=== PATIENT | female | born 1995 | race Caucasian/White ===

== ENCOUNTER 2017-05-20 22:42 | Emergency (ER) | payer SELFPAY ==
[2017-05-20] MEDS ORDERED: Ondansetron 4 MG/2 ML SDV IVPUSH ONE (22:55)
[2017-05-20] MEDS ORDERED: Sodium Chloride 0.9% 1,000 ML IV ONE (22:55)
--- NOTE | 2017-05-20 22:57 | EDM.PDOC ---
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 Complaint: 12 WKS PREG, SPOTTING, DISCHARGE Time Seen by Provider: 05/20/17 22:57 Source of Information: Reports: Patient - History of Present Illness INITIAL COMMENTS - FREE TEXT/NARRATIVE: HISTORY AND PHYSICAL: History of present illness: [Patient 10 presents at 12 weeks 5 days with IUP She states she has some spotting that has occurred as well as some white discharge vaginally and some mild 1 out of 10 crampy pelvic pain no fever nausea vomiting chills sweats no low back pain no sensation or urge to push ] Patient uncertain of LMP she states she did have a period in January her on the , 1 day of bleeding in February uncertain of the day, she is followed with a " clinic "in [place], [place] and ultrasound was performed in March she states at that time she was given a possible date of 4-5 weeks but it was too early to be certain Review of systems: As per history of present illness and below otherwise all systems reviewed and negative. Past medical history: As per history of present illness and as reviewed below otherwise noncontributory. Surgical history: As per history of present illness and as reviewed below otherwise noncontributory. Social history: No reported history of drug or alcohol abuse. Family history: As per history of present illness and as reviewed below otherwise noncontributory. Physical exam: HEENT: Atraumatic, normocephalic, pupils reactive, negative for conjunctival pallor or scleral icterus, mucous membranes moist, throat clear, neck supple, nontender, trachea midline. Lungs: Clear to auscultation, breath sounds equal bilaterally, chest nontender. Heart: S1S2, regular, negative for clicks, rubs, or JVD. Abdomen: Soft, nondistended, nontender. Negative for masses or hepatosplenomegaly. Negative for costovertebral tenderness. Pelvis: Stable nontender. Genitourinary: External vaginal exam no mass scar or lesion internal exam mucosa pink and moist no blood in the vaginal vault white mucus discharge no curdy material no mass scar or lesion no cervical motion tenderness cervix is closed Rectal: Deferred. Extremities: Atraumatic, negative for cords or calf pain. Neurovascular unremarkable. Neuro: Awake, alert, oriented. Cranial nerves II through XII unremarkable. Cerebellum unremarkable. Motor and sensory unremarkable throughout. Exam nonfocal. Diagnostics: []CBC CMP UA hCG Quant vaginal cultures, GC Chlamydia Wet mount ABO type OB limited ultrasound Therapeutics: [1 L normal saline bolus Zofran 4 mg IV ] Impression: [Threatened ] 11 at 12 weeks 5 days with IUP heart rate 147 EDC 11/27 by ultrasound ABO type A+ Definitive disposition and diagnosis as appropriate pending reevaluation and review of above. abdomen Pain Score (Numeric/FACES): 6 - Related Data Allergies Allergy/AdvReac Type Severity Reaction Status Date / Time No Known Allergies Allergy Verified 05/20/17 22:45 Home Meds: Home Meds . [No Known Home Meds] 05/20/17 [History] ED ROS GENERAL - Review of Systems Review Of Systems: ROS reveals no pertinent complaints other than HPI. ED EXAM, GENERAL - Physical Exam Exam: See Below Course - Vital Signs Last Recorded V/S: Last Vital Signs Temp 98.5 F 05/21/17 01:41 Pulse 64 05/21/17 01:41 Resp 14 05/21/17 01:41 BP 101/50 L 05/21/17 01:41 Pulse Ox 100 05/21/17 01:41 - Orders/Labs/Meds Orders: Active Orders 24 hr Category Date Time Status OB Ltd 1 or More Fetus [US] Stat Exams 05/20/17 22:56 Taken CHLAMYDIA AND GONORRHEA BY TMA Stat Lab 05/21/17 01:00 Received CULTURE GENITAL [RM] Stat Lab 05/21/17 01:00 Received CULTURE URINE [RM] Stat Lab 05/21/17 01:01 Received Labs: Laboratory Tests 05/20/17 05/20/17 05/20/17 Range/Units 22:55 23:08 23:08 WBC 8.29 (4.0-11.0) K/uL RBC 3.99 L (4.30-5.90) M/uL Hgb 11.6 L (12.0-16.0) g/dL Hct 33.5 L (36.0-46.0) % MCV 84.0 (80.0-98.0) fL MCH 29.1 (27.0-32.0) pg MCHC 34.6 (31.0-37.0) g/dL RDW Std Deviation 42.9 (28.0-62.0) fl RDW Coeff of Ziggy 14 (11.0-15.0) % Plt Count 299 (150-400) K/uL MPV 10.10 (7.40-12.00) fL Neut % (Auto) 56.6 (48.0-80.0) % Lymph % (Auto) 35.7 (16.0-40.0) % Bucks % (Auto) 5.8 (0.0-15.0) % Eos % (Auto) 1.7 (0.0-7.0) % Baso % (Auto) 0.2 (0.0-1.5) % Neut # (Auto) 4.7 (1.4-5.7) K/uL Lymph # (Auto) 3.0 H (0.6-2.4) K/uL Bucks # (Auto) 0.5 (0.0-0.8) K/uL Eos # (Auto) 0.1 (0.0-0.7) K/uL Baso # (Auto) 0.0 (0.0-0.1) K/uL Nucleated RBC % 0.0 /100WBC Nucleated RBCs # 0 K/uL Sodium 139 (136-145) mmol/L Potassium 3.7 (3.5-5.1) mmol/L Chloride 104 (98-107) mmol/L Carbon Dioxide 26.5 (21.0-32.0) mmol/L BUN 6 L (7.0-18.0) mg/dL Creatinine 0.6 (0.6-1.0) mg/dL Est Cr Clr Drug Dosing 115.33 mL/min Estimated GFR (MDRD) > 60.0 ml/min Glucose 75 (74-106) mg/dL Calcium 9.0 (8.5-10.1) mg/dL Total Bilirubin 0.2 (0.2-1.0) mg/dL AST 13 L (15-37) U/L ALT 17 (14-63) U/L Alkaline Phosphatase 56 (46-116) U/L Troponin I < 0.050 (0.000-0.056) ng/mL Total Protein 7.0 (6.4-8.2) g/dL Albumin 3.1 L (3.4-5.0) g/dL Globulin 3.9 H (2.0-3.5) g/dL Albumin/Globulin Ratio 0.8 L (1.3-2.8) HCG, Quant 73283.0 mIU/mL Urine Color YELLOW Urine Appearance SLT CLOUDY Urine pH 5.5 (5.0-8.0) Ur Specific Kathleen 1.020 (1.001-1.035) Urine Protein NEGATIVE (NEGATIVE) mg/dL Urine Glucose (UA) NEGATIVE (NEGATIVE) mg/dL Urine Ketones NEGATIVE (NEGATIVE) mg/dL Urine Occult Blood NEGATIVE (NEGATIVE) Urine Nitrite NEGATIVE (NEGATIVE) Urine Bilirubin NEGATIVE (NEGATIVE) Urine Urobilinogen 1.0 (<2.0) EU/dL Ur Leukocyte Esterase SMALL (NEGATIVE) Urine RBC 0-2 (0-2/HPF) Urine WBC 2-5 (0-5/HPF) Ur Epithelial Cells FEW (NONE-FEW) Amorphous Sediment LIGHT (NEGATIVE) Urine Bacteria FEW (NEGATIVE) Zuleika species DNA (NEGATIVE) Gardnerella DNA Probe (NEGATIVE) Trichomonas DNA Probe (NEGATIVE) Blood Type 05/20/17 05/21/17 Range/Units 23:08 01:00 WBC (4.0-11.0) K/uL RBC (4.30-5.90) M/uL Hgb (12.0-16.0) g/dL Hct (36.0-46.0) % MCV (80.0-98.0) fL MCH (27.0-32.0) pg MCHC (31.0-37.0) g/dL RDW Std Deviation (28.0-62.0) fl RDW Coeff of Ziggy (11.0-15.0) % Plt Count (150-400) K/uL MPV (7.40-12.00) fL Neut % (Auto) (48.0-80.0) % Lymph % (Auto) (16.0-40.0) % Bucks % (Auto) (0.0-15.0) % Eos % (Auto) (0.0-7.0) % Baso % (Auto) (0.0-1.5) % Neut # (Auto) (1.4-5.7) K/uL Lymph # (Auto) (0.6-2.4) K/uL Bucks # (Auto) (0.0-0.8) K/uL Eos # (Auto) (0.0-0.7) K/uL Baso # (Auto) (0.0-0.1) K/uL Nucleated RBC % /100WBC Nucleated RBCs # K/uL Sodium (136-145) mmol/L Potassium (3.5-5.1) mmol/L Chloride (98-107) mmol/L Carbon Dioxide (21.0-32.0) mmol/L BUN (7.0-18.0) mg/dL Creatinine (0.6-1.0) mg/dL Est Cr Clr Drug Dosing mL/min Estimated GFR (MDRD) ml/min Glucose (74-106) mg/dL Calcium (8.5-10.1) mg/dL Total Bilirubin (0.2-1.0) mg/dL AST (15-37) U/L ALT (14-63) U/L Alkaline Phosphatase (46-116) U/L Troponin I (0.000-0.056) ng/mL Total Protein (6.4-8.2) g/dL Albumin (3.4-5.0) g/dL Globulin (2.0-3.5) g/dL Albumin/Globulin Ratio (1.3-2.8) HCG, Quant mIU/mL Urine Color Urine Appearance Urine pH (5.0-8.0) Ur Specific Kathleen (1.001-1.035) Urine Protein (NEGATIVE) mg/dL Urine Glucose (UA) (NEGATIVE) mg/dL Urine Ketones (NEGATIVE) mg/dL Urine Occult Blood (NEGATIVE) Urine Nitrite (NEGATIVE) Urine Bilirubin (NEGATIVE) Urine Urobilinogen (<2.0) EU/dL Ur Leukocyte Esterase (NEGATIVE) Urine RBC (0-2/HPF) Urine WBC (0-5/HPF) Ur Epithelial Cells (NONE-FEW) Amorphous Sediment (NEGATIVE) Urine Bacteria (NEGATIVE) Zuleika species DNA NEGATIVE (NEGATIVE) Gardnerella DNA Probe NEGATIVE (NEGATIVE) Trichomonas DNA Probe NEGATIVE (NEGATIVE) Blood Type A POSITIVE Meds: Medications Discontinued Medications Generic Name Dose Route Start Last Admin Trade Name Freq PRN Reason Stop Dose Admin Sodium Chloride 1,000 mls @ 999 mls/hr 05/20/17 22:55 05/20/17 23:10 Normal Saline IV 05/20/17 23:55 999 mls/hr STAT ONE Administration Ondansetron HCl 4 mg 05/20/17 22:55 05/20/17 23:10 Zofran IVPUSH 05/20/17 22:56 4 mg ONETIME ONE Administration Departure - Departure Time of Disposition: :01 Disposition: Home, Self-Care 01 Condition: Good Clinical Impression: Threatened - Discharge Information Referrals: PCP,None [Primary Care Provider] - Forms: ED Department Discharge Additional Instructions: Follow-up with OB and establish care, phone numbers provided below for both local clinics Again nothing per vagina and no tampons douching intercourse etc. vitamins recommended Return if symptoms persist or worsen or new concerning symptoms develop [facility] [address] [place] [id number] [facility] [address] [place] [id number] The following information is given to patients seen in the emergency department who are being discharged to home. This information is to outline your options for follow-up care. We provide all patients seen in our emergency department with a follow-up referral. The need for follow-up, as well as the timing and circumstances, are variable depending upon the specifics of your emergency department visit. If you don't have a primary care physician on staff, we will provide you with a referral. We always advise you to contact your personal physician following an emergency department visit to inform them of the circumstance of the visit and for follow-up with them and/or the need for any referrals to a consulting specialist. The emergency department will also refer you to a specialist when appropriate. This referral assures that you have the opportunity for follow-up care with a specialist. All of these measure are taken in an effort to provide you with optimal care, which includes your follow-up. Under all circumstances we always encourage you to contact your private physician who remains a resource for coordinating your care. When calling for follow-up care, please make the office aware that this follow-up is from your recent emergency room visit. If for any reason you are refused follow-up, please contact the emergency department at and asked to speak to the emergency department charge nurse. - My Orders Last 24 Hours: My Active Orders 05/20/17 22:56 OB Ltd 1 or More Fetus [US] Stat 05/21/17 01:00 CHLAMYDIA AND GONORRHEA BY TMA Stat CULTURE GENITAL [RM] Stat 05/21/17 01:01 CULTURE URINE [RM] Stat - Assessment/Plan Last 24 Hours: My Active Orders 05/20/17 22:56 OB Ltd 1 or More Fetus [US] Stat 05/21/17 01:00 CHLAMYDIA AND GONORRHEA BY TMA Stat CULTURE GENITAL [RM] Stat 05/21/17 01:01 CULTURE URINE [RM] Stat
[2017-05-21 00:01] LABS: CHLORIDE,CL 104 mmol/L (98-107); SODIUM,NA 139 mmol/L (136-145)
--- NOTE | 2017-05-21 10:08 | US ---
EXAM DATE: 05/20/17 PATIENT'S AGE: 22 Patient: ELVA CRUZ Facility: [place], [place] Site . Site : 1995 Study: US OB Pelvis [id number]/6/2018 12:16:23 AM Ordering Physician: Ang Adames Final Report: INDICATION: Spotting TECHNIQUE: Ultrasound OB pelvis transvaginal. Real time dowell scale imaging of the pelvis was performed. COMPARISON: None FINDINGS: LMP: 02/28/2017 Gestational age by LMP: 11 weeks 4 days Estimated due date by LMP: 12/05/2017 Sonographic imaging demonstrates a single living intrauterine gestation. The embryo demonstrates a regular cardiac rate measuring 147 beats per minute. The embryo`s crown rump length measurement of 6.13 cm corresponds to a gestational age of 12 weeks 5 days with a sonographic due date of 11/27/2017. There is a normal appearing yolk sac. There are no gross abnormalities noted within the embryo at this early state of development. The placenta has not yet developed. The gestational sac has a normal appearance and there is no evidence of a perigestational hemorrhage. The amount of fluid within the sac appears appropriate for gestational age. The cervix is closed. The myometrium appears normal. The ovaries are of normal size. There are no suspicious fluid collections noted in the cul-de-sac. IMPRESSION: Viable intrauterine . Gestational age calculated at 12 weeks 5 days with a sonographic due date of 11/27/2017. No abnormalities seen. Dictated by Gurvinder Quevedo MD @ 05/21/2017 12:24:21 AM Dictated by: Gurvinder Quevedo MD @ 05/21/2017 00:24:29 (Electronic Signature) Report Signed by Proxy. KAMLA
== END 2017-05-21 02:12 | disposition home or self-care (01) ==
LOC: MW.ED 22:42
DX: O20.0 Threatened abortion (principal); Z3A.12 12 weeks gestation of pregnancy
CPT/HCPCS: 36415; 76815; 80053; 81001; 84484; 84702; 85025; 86900; 86901; 87070; 87086; 87480; 87491; 87510; 87591; 87660; 96361; 96374; 99284; J2405; J7040; 99283

== ENCOUNTER 2018-10-12 01:06 | Observation (INO) | payer MEDICAID ==
[2018-10-12] MEDS ORDERED: Misoprostol 200 MCG Tab PO PRN (02:36)
[2018-10-12] MEDS ORDERED: Lidocaine 1% 50 ML MDV INJECT PRN (02:36)
[2018-10-12] MEDS ORDERED: Methylergonovine 0.2 MG/1 ML Amp IM PRN (02:36)
[2018-10-12] MEDS ORDERED: Carboprost Tromethamine 250 MCG/1 ML Amp IM PRN (02:36)
[2018-10-12] MEDS ORDERED: Sodium Chloride 0.9% 10 ML SDV IV PRN (02:36)
[2018-10-12] MEDS ORDERED: Tranexamic Acid 1,000 MG in Sodium Chloride 0.9% 100 ML IV PRN (02:36)
[2018-10-12] MEDS ORDERED: Water For Irrigation,Sterile 1,000 ML Container IRR PRN (02:36)
[2018-10-12] MEDS ORDERED: Nalbuphine 10 MG/1 ML Vial IVPUSH PRN (02:36)
[2018-10-12] MEDS ORDERED: Sodium Chloride 0.9% 10 ML Syringe FLUSH PRN (02:36)
[2018-10-12] MEDS ORDERED: Sodium Chloride 0.9% 2.5 ML Syringe FLUSH PRN (02:36)
[2018-10-12] MEDS ORDERED: Butorphanol 1 MG/ML SDV IVPUSH PRN (02:36)
[2018-10-12] MEDS ORDERED: Oxytocin/0.9 % Sodium Chloride 30 UNIT/500 ML BAG IV SCH (02:45)
[2018-10-12] MEDS: Lactated Ringers 1,000 ML IV SCH ×2 (03:13→05:10)
[2018-10-12] MEDS ORDERED: Betamethasone Acetate/Betamethasone Sod Phosphate 30 MG/5 ML MDV IM ONE (07:50)
[2018-10-12] MEDS ORDERED: Promethazine 25 MG/ML SDV IM ONE (07:52)
[2018-10-13] MEDS ORDERED: Betamethasone Acetate/Betamethasone Sod Phosphate 30 MG/5 ML MDV IM ONE (07:50)
== END 2018-10-13 08:40 | disposition home or self-care (01) ==
LOC: MW.OBCHECK 01:06 → MW.OB 01:07 → MW.OBCHECK 02:36
PROVIDERS: ADMIT Obstetrics & Gynecology; ATTEND Obstetrics & Gynecology
DX: O60.03 Preterm labor without delivery, third trimester (principal); O99.013 Anemia complicating pregnancy, third trimester; D64.9 Anemia, unspecified; O99.343 Other mental disorders complicating pregnancy, third trimester; F41.8 Other specified anxiety disorders; O36.8130 Decreased fetal movements, third trimester, not applicable or unspecified; Z3A.35 35 weeks gestation of pregnancy; Z88.8 Allergy status to other drugs, medicaments and biological substances; Z86.59 Personal history of other mental and behavioral disorders
CPT/HCPCS: 36415; 59025; 84112; 85027; 86850; 86900; 86901; 96360; 96361; 96372; G0378; J0702; J2550; J7120

== ENCOUNTER 2018-10-15 20:41 | Inpatient (IN) | payer MEDICAID ==
[2018-10-15] MEDS ORDERED: Oxytocin 10 Units/1 ML SDV ONE (21:15)
[2018-10-15] MEDS ORDERED: Oxytocin/0.9 % Sodium Chloride 30 UNIT/500 ML BAG ONE (21:23)
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
--- NOTE | 2018-10-15 21:56 | PCM.DEL ---
L & D Note - General Info Date of Service: 10/15/18 Mother's Due Date: 11/12/18 - Delivery Note Labor: Spontaneous Delivery Outcome: Livebirth Infant Delivery Method: Spontaneous Vaginal Delivery-Single Delivery Mode: Spontaneous Presentation: Vertex Nuchal Cord: None Anesthesia Type: None Amniotic Fluid Description: Meconium Stained Episiotomy Type: None Laceration: None Placenta: Intact, Spontaneous, Clot (5cm abruption noted) Cord: 3 Vessels Estimated Blood Loss: 300 Resuscitation Needed: Yes Score 1 min: 4 Score 5 min: 7 Second Stage Interventions: Reports: Pushing, Pulls Own Legs Back Delivery Comments (Free Text/Narrative):: of viable female. Head delivered with good pushing, shoulders and body followed. Fluid dark red blood noted. to mothers abd with RN at bs for evaluation. Cord clamped and cut. to warmer without spont cry. Ped doc at bs for deliver and resuscitation. Cord blood collected. Placenta delivered grossly intact, inspection of the placenta noted 5cm abruption. Inspection noted intact perineum. EBL 300cc, APGARS 4/7, Wt: 6lb. Mother and baby in stable condition. - General Info Date of Service: 10/15/18 Admission Dx/Problem (Free Text): Patient Status Order with Admit Dx/Problem 10/15/18 20:47 Patient Status [ADT] Routine Admission Diagnosis/Problem Admission Diagnosis/Problem 10/15/18 21:31 23yo EDC 11/12/2018 36 0/7wks, comes in active labor at 6cm, A+, Non- Immune, GBS neg. Functional Status: Reports: Pain Controlled - Review of Systems General: Reports: No Symptoms HEENT: Reports: No Symptoms Pulmonary: Reports: No Symptoms Cardiovascular: Reports: No Symptoms Gastrointestinal: Reports: No Symptoms Genitourinary: Reports: No Symptoms Musculoskeletal: Reports: No Symptoms Skin: Reports: No Symptoms Neurological: Reports: No Symptoms Psychiatric: Reports: No Symptoms - Patient Data Med Orders - Current: Current Medications Discontinued Medications Oxytocin/Sodium Chloride (Oxytocin 30 Unit/500 Ml-Ns) Confirm Administered Dose 30 unit in 500 mls @ as directed .ROUTE .STK-MED ONE Stop: 10/15/18 21:24 Oxytocin (Pitocin) Confirm Administered Dose 10 unit .ROUTE .STK-MED ONE Stop: 10/15/18 21:16 - Exam General: Alert, Oriented, Cooperative Lungs: Normal Respiratory Effort GI/Abdominal Exam: Soft, Non-Tender (Female) Exam: Normal External Exam, Normal Bimanual Exam, Vaginal Bleeding Back Exam: Full Range of Motion Extremities: Normal Inspection, Normal Range of Motion, Non-Tender, No Pedal Edema Skin: Warm, Dry, Intact Neurological: No New Focal Deficit, Normal Speech, Normal Tone, Strength Equal Bilateral Psy/Mental Status: Alert, Normal Affect, Normal Mood - Problem List & Annotations (1) Supervision of normal IUP (intrauterine ) in multigravida SNOMED Code(s): 164492878, 877648281, 601333181 Code(s): Z34.80 - ENCOUNTER FOR SUPRVSN OF NORMAL , UNSP TRIMESTER Status: Acute Priority: High Current Visit: Yes Qualifiers: Trimester: third trimester Qualified Code(s): Z34.83 - Encounter for supervision of other normal , third trimester (2) (normal spontaneous vaginal delivery) SNOMED Code(s): 10731929, 749401076 Code(s): O80 - ENCOUNTER FOR FULL-TERM UNCOMPLICATED DELIVERY Status: Acute Priority: High Current Visit: Yes - Problem List Review Problem List Initiated/Reviewed/Updated: Yes - My Orders Last 24 Hours: My Active Orders 10/15/18 20:47 Patient Status [ADT] Routine Heart Tones [RC] CONTINUOUS Non Stress Test [RC] PER UNIT ROUTINE May Shower [RC] ASDIRECTED Notify Provider [RC] PRN Up ad Jemima [RC] ASDIRECTED Vaginal Exam [RC] PRN Vital Signs [RC] PER UNIT ROUTINE CBC W/O DIFF,HEMOGRAM [HEME] Routine TYPE AND SCREEN [BBK] Routine Scalp Electrode [WOMSER] Per Unit Routine Peripheral IV Insertion Adult [OM.PC] Routine Resuscitation Status Routine - Plan Plan:: Labor A: 23yo EDC 11/12/2018 36 0/7wks, comes in active labor at 6cm, A+, Non- Immune, GBS neg. P: Admit, anticipate , Dr cheng updated Delivery A: of viable female, APGARS 4/8, Wt 6lb 0oz, Intact, EBL 300cc. Mom stable. to be transferred to [facility] P: Routine pp plan of care
[2018-10-15] MEDS ORDERED: Lanolin 100% Cream 7 GM Tube TOP PRN (21:58)
[2018-10-15] MEDS ORDERED: Benzocaine/Menthol 20%-0.5% Spray 78 GM Cannister TOP PRN (21:58)
[2018-10-15] MEDS ORDERED: Ibuprofen 800 MG Tab PO PRN (21:58)
[2018-10-15] MEDS ORDERED: oxyCODONE 5 MG Tab PO PRN (21:58)
[2018-10-15] MEDS ORDERED: Ibuprofen 400 MG Tab PO PRN (21:58)
[2018-10-15] MEDS ORDERED: Docusate Sodium 100 MG Cap PO PRN (21:58)
[2018-10-15] MEDS ORDERED: Witch Hazel Medicated Pads 40/Jar TOP PRN (21:58)
[2018-10-15] MEDS ORDERED: Bisacodyl 10 MG Supp RECTAL PRN (21:58)
[2018-10-15] MEDS ORDERED: Acetaminophen 500 MG Tab PO PRN ×2 (21:58)
--- NOTE | 2018-10-16 08:41 | PCM.DCSUM1 ---
Discharge Summary - Hospital Course Free Text/Narrative:: Discharge home. in [place]. Follow up in 6 weeks for exam. Diagnosis: Stroke: No - Discharge Data Discharge Date: 10/16/18 Discharge Disposition: Home, Self-Care 01 Condition: Good - Discharge Diagnosis/Problem(s) (1) Supervision of normal IUP (intrauterine ) in multigravida SNOMED Code(s): 609568273, 822117962, 221379633 ICD Code: Z34.80 - ENCOUNTER FOR SUPRVSN OF NORMAL , UNSP TRIMESTER Status: Acute Priority: High Current Visit: Yes Qualifiers: Trimester: third trimester Qualified Code(s): Z34.83 - Encounter for supervision of other normal , third trimester (2) (normal spontaneous vaginal delivery) SNOMED Code(s): 19972907, 424593670 ICD Code: O80 - ENCOUNTER FOR FULL-TERM UNCOMPLICATED DELIVERY Status: Acute Priority: High Current Visit: Yes - Patient Instructions Diet: Usual Diet as Tolerated Activity: As Tolerated, No Strenuous Activities, Rest and Relax Today Driving: May Drive Today Showering/Bathing: May Shower Notify Provider of: Fever, Increased Pain, Swelling and Redness, Nausea and/or Vomiting Other/Special Instructions: Discharge home. in [place]. Follow up in 6 weeks for exam. - Discharge Plan *PRESCRIPTION DRUG MONITORING PROGRAM REVIEWED*: Not Applicable *COPY OF PRESCRIPTION DRUG MONITORING REPORT IN PATIENT NICK: Not Applicable Prescriptions/Med Rec: Ibuprofen [Motrin] 800 mg PO Q6H PRN #90 tablet PRN Reason: Pain Home Medications: Home Meds Ferrous Sulfate 2 tab PO BID 09/05/18 [History] Pediatric Multivitamin Comb#30 [Gummies Children Multivitamin] 1 tab PO DAILY [History] Ibuprofen [Motrin] 800 mg PO Q6H PRN #90 tablet 10/16/18 [Rx] Oxygen Therapy Mode: Room Air - Discharge Summary/Plan Comment DC Time >30 min.: No - General Info Date of Service: 10/16/18 Admission Dx/Problem (Free Text: Patient Status Order with Admit Dx/Problem 10/15/18 20:47 Patient Status [ADT] Routine Admission Diagnosis/Problem Admission Diagnosis/Problem 10/15/18 21:31 23yo EDC 11/12/2018 36 0/7wks, comes in active labor at 6cm, A+, Non- Immune, GBS neg. Functional Status: Reports: Pain Controlled, Tolerating Diet, Ambulating, Urinating - Review of Systems General: Reports: No Symptoms HEENT: Reports: No Symptoms Pulmonary: Reports: No Symptoms Cardiovascular: Reports: No Symptoms Gastrointestinal: Reports: No Symptoms Genitourinary: Reports: No Symptoms Musculoskeletal: Reports: No Symptoms Skin: Reports: No Symptoms Neurological: Reports: No Symptoms Psychiatric: Reports: No Symptoms - Patient Data Vitals - Most Recent: Last Vital Signs Temp 35.8 C 10/16/18 03:49 Pulse 50 L 10/16/18 03:49 Resp 14 10/16/18 03:49 BP 128/74 10/16/18 03:49 Pulse Ox 100 10/16/18 03:49 Weight - Most Recent: 74.843 kg Lab Results - Last 24 hrs: Laboratory Results - last 24 hr 10/15/18 10/15/18 10/15/18 Range/Units 20:30 21:32 21:32 WBC 12.69 H (4.0-11.0) K/uL RBC 3.67 L (4.30-5.90) M/uL Hgb 8.0 L (12.0-16.0) g/dL Hct 26.9 L (36.0-46.0) % MCV 73.3 L (80.0-98.0) fL MCH 21.8 L (27.0-32.0) pg MCHC 29.7 L (31.0-37.0) g/dL RDW Std Deviation 44.1 (28.0-62.0) fl RDW Coeff of Ziggy 17 H (11.0-15.0) % Plt Count 187 (150-400) K/uL MPV 10.70 (7.40-12.00) fL Nucleated RBC % 6.5 /100WBC Nucleated RBCs # 1 K/uL Urine Opiates Screen NEGATIVE (NEGATIVE) Ur Oxycodone Screen NEGATIVE (NEGATIVE) Urine Methadone Screen NEGATIVE (NEGATIVE) Ur Barbiturates Screen NEGATIVE (NEGATIVE) Ur Phencyclidine Scrn NEGATIVE (NEGATIVE) Ur Amphetamine Screen NEGATIVE (NEGATIVE) U Methamphetamines Scrn NEGATIVE (NEGATIVE) U Benzodiazepines Scrn NEGATIVE (NEGATIVE) U Cocaine Metab Screen NEGATIVE (NEGATIVE) U Marijuana (THC) Screen NEGATIVE (NEGATIVE) Blood Type A POSITIVE Antibody Screen NEGATIVE 10/16/18 Range/Units 05:00 WBC (4.0-11.0) K/uL RBC (4.30-5.90) M/uL Hgb 7.3 L (12.0-16.0) g/dL Hct 23.9 L (36.0-46.0) % MCV (80.0-98.0) fL MCH (27.0-32.0) pg MCHC (31.0-37.0) g/dL RDW Std Deviation (28.0-62.0) fl RDW Coeff of Ziggy (11.0-15.0) % Plt Count (150-400) K/uL MPV (7.40-12.00) fL Nucleated RBC % /100WBC Nucleated RBCs # K/uL Urine Opiates Screen (NEGATIVE) Ur Oxycodone Screen (NEGATIVE) Urine Methadone Screen (NEGATIVE) Ur Barbiturates Screen (NEGATIVE) Ur Phencyclidine Scrn (NEGATIVE) Ur Amphetamine Screen (NEGATIVE) U Methamphetamines Scrn (NEGATIVE) U Benzodiazepines Scrn (NEGATIVE) U Cocaine Metab Screen (NEGATIVE) U Marijuana (THC) Screen (NEGATIVE) Blood Type Antibody Screen Med Orders - Current: Current Medications Acetaminophen (Tylenol Extra Strength) 500 mg PO Q4H PRN PRN Reason: Pain Acetaminophen (Tylenol Extra Strength) 1,000 mg PO Q4H PRN PRN Reason: Pain Last Admin: 10/16/18 06:24 Dose: 1,000 mg Benzocaine/Menthol (Dermoplast Pain Relief 20%-0.5% [place]) 78 gm TOP ASDIRECTED PRN PRN Reason: Perineal Comfort Measure Last Admin: 10/15/18 22:35 Dose: 78 gm Bisacodyl (Dulcolax) 10 mg RECTAL ONETIME PRN PRN Reason: Constipation Docusate Sodium (Colace) 100 mg PO BID PRN PRN Reason: Constipation Emollient Ointment (Lansinoh Hpa) 0 gm TOP ASDIRECTED PRN PRN Reason: Sore Nipples Ibuprofen (Motrin) 400 mg PO Q4H PRN PRN Reason: Pain Last Admin: 10/15/18 23:37 Dose: 400 mg Ibuprofen (Motrin) 800 mg PO Q6H PRN PRN Reason: Pain Measles/Mumps/Rubella Vaccine Live (M-M-R Ii Vaccine) 0.5 ml SUBCUT .ONCE ONE Stop: 10/16/18 09:01 Oxycodone HCl (Oxycodone) 5 mg PO Q2H PRN PRN Reason: Pain Witch Silvina (Tucks) 1 pad TOP ASDIRECTED PRN PRN Reason: comfort care Discontinued Medications Oxytocin/Sodium Chloride (Oxytocin 30 Unit/500 Ml-Ns) Confirm Administered Dose 30 unit in 500 mls @ as directed .ROUTE .STK-MED ONE Stop: 10/15/18 21:24 Last Admin: 10/15/18 21:30 Dose: 555 mls/hr Oxytocin (Pitocin) Confirm Administered Dose 10 unit .ROUTE .STK-MED ONE Stop: 10/15/18 21:16 Last Admin: 10/15/18 21:15 Dose: 10 unit - Exam General: Reports: Alert, Oriented, Cooperative, No Acute Distress Lungs: Reports: Clear to Auscultation, Normal Respiratory Effort. Denies: Decreased Breath Sounds Cardiovascular: Reports: Regular Rate, Regular Rhythm. Denies: No Murmurs GI/Abdominal Exam: Soft, Non-Tender (Female) Exam: Deferred, Vaginal Bleeding Rectal (Female) Exam: Deferred Back Exam: Reports: Full Range of Motion Extremities: Normal Inspection, Normal Range of Motion, Non-Tender, No Pedal Edema Skin: Reports: Warm, Dry, Intact Neurological: Reports: No New Focal Deficit, Normal Gait, Normal Speech, Normal Tone, Strength Equal Bilateral Psy/Mental Status: Reports: Alert, Normal Affect, Normal Mood
[2018-10-16] MEDS ORDERED: Measles, Mumps & Rubella Vaccine 0.5 ML SDV SUBCUT ONE (09:00)
== END 2018-10-16 10:59 | disposition home or self-care (01) | DRG 805 ==
LOC: MW.OBCHECK 20:41 → MW.OB 20:45 → MW.OBCHECK 20:47 → OBSVTOIN 21:12 → MW.MS 10-16
PROVIDERS: ADMIT Obstetrics & Gynecology; ATTEND Obstetrics & Gynecology
PROC: 10E0XZZ Delivery of Products of Conception, External Approach (ICD-10-PCS; principal; 2018-10-15)
DX: O60.14X0 Preterm labor third trimester with preterm delivery third trimester, not applicable or unspecified (principal); O45.93 Premature separation of placenta, unspecified, third trimester; Z37.0 Single live birth; O77.0 Labor and delivery complicated by meconium in amniotic fluid; O99.02 Anemia complicating childbirth; D64.9 Anemia, unspecified; Z3A.36 36 weeks gestation of pregnancy; O36.8130 Decreased fetal movements, third trimester, not applicable or unspecified; Z3A.28 28 weeks gestation of pregnancy; Z34.93 Encounter for supervision of normal pregnancy, unspecified, third trimester
CPT/HCPCS: 36415; 59025; 59409; 76819; 76819-26; 80305-QW; 85014; 85018; 85027; 86850; 86900; 86901; A9270-GY; J2590

== ENCOUNTER 2019-09-21 08:49 | Emergency (ER) | payer SELFPAY ==
[2019-09-21] MEDS ORDERED: Ketorolac 15 MG/ML SDV IM ONE (09:10)
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
--- NOTE | 2019-09-21 10:10 | CT ---
Head CT Technique: Multiple axial sections through the brain were obtained. Intravenous contrast was not utilized. Comparison: No prior intracranial imaging is available. Findings: Ventricles along with basal cisterns and sulci over the convexities are within normal limits for the patient's age. No abnormal parenchymal densities are seen. No evidence of intracranial hemorrhage. No midline shift or mass-effect is appreciated. Bone window settings were reviewed. No acute calvarial finding is seen. Visualized paranasal sinuses and visualized mastoid sinuses show nothing acute. No acute calvarial abnormality is appreciated. Impression: 1. Nothing acute is appreciated on noncontrast head CT exam. Diagnostic code #1 This report was dictated in MDT
--- NOTE | 2019-09-21 10:25 | CT ---
CT cervical spine Technique: Multiple axial sections were obtained from above C1 inferiorly to the top of T3. Reconstructed sagittal and coronal images were reviewed. Findings: Visualized mastoid sinuses and paranasal sinuses show nothing acute. Skull base appears intact. Vertebral body heights and disc spaces are maintained. Vertebral bodies and posterior arches are intact with no fracture being seen. No bony central or bony neural foraminal stenosis is seen. No abnormal subluxation is appreciated. Impression: 1. Nothing acute is appreciated on CT study of the cervical spine. Diagnostic code #1 This report was dictated in MDT
--- NOTE | 2019-09-21 10:40 | CT ---
CT facial bones Technique: Multiple axial sections through the facial bones were obtained. Reconstructed coronal and sagittal images were obtained. Findings: Mild motion artifact is present. No fracture is appreciated. Paranasal sinuses show nothing acute. Mastoid sinuses show nothing acute. Slight nasal septal deviation is seen. Right and left globes are symmetric. No retro-bulbar abnormality is seen. Impression: 1. Nothing acute is appreciated on CT study of the facial bones. Diagnostic code #1 This report was dictated in MDT
== END 2019-09-21 11:10 | disposition home or self-care (01) ==
LOC: MW.ED 08:49
DX: S06.0X9A Concussion with loss of consciousness of unspecified duration, initial encounter (principal); S00.83XA Contusion of other part of head, initial encounter; K13.0 Diseases of lips; L98.429 Non-pressure chronic ulcer of back with unspecified severity; Z88.5 Allergy status to narcotic agent; Y04.0XXA Assault by unarmed brawl or fight, initial encounter
CPT/HCPCS: 70450; 70450-26; 70486; 70486-26; 72125; 72125-26; 81025; 96372; 99283; 99284-25; J1885

== ENCOUNTER 2020-05-23 23:39 | Observation (INO) | payer SELFPAY ==
[2020-05-24] MEDS ORDERED: Lactated Ringers 1,000 ML IV SCH ×2 (00:45→02:00)
[2020-05-24] MEDS ORDERED: Sodium Chloride 0.9% 10 ML Syringe FLUSH PRN (01:54)
[2020-05-24] MEDS ORDERED: Methylergonovine 0.2 MG/1 ML Amp IM PRN (01:54)
[2020-05-24] MEDS ORDERED: Ondansetron 4 MG/2 ML SDV IVPUSH PRN (01:54)
[2020-05-24] MEDS ORDERED: Sodium Chloride 0.9% 10 ML SDV IV PRN (01:54)
[2020-05-24] MEDS ORDERED: Butorphanol 1 MG/ML SDV IVPUSH PRN (01:54)
[2020-05-24] MEDS ORDERED: Nalbuphine 10 MG/1 ML Vial IVPUSH PRN (01:54)
[2020-05-24] MEDS ORDERED: Tranexamic Acid 1,000 MG in Sodium Chloride 0.9% 100 ML IV PRN (01:54)
[2020-05-24] MEDS ORDERED: Carboprost Tromethamine 250 MCG/1 ML Amp IM PRN (01:54)
[2020-05-24] MEDS ORDERED: Lidocaine 1% 50 ML MDV INJECT PRN (01:54)
[2020-05-24] MEDS ORDERED: Misoprostol 200 MCG Tab PO PRN (01:54)
[2020-05-24] MEDS ORDERED: Water For Irrigation,Sterile 1,000 ML Container IRR PRN (01:54)
[2020-05-24] MEDS ORDERED: Sodium Chloride 0.9% 2.5 ML Syringe FLUSH PRN (01:54)
[2020-05-24] MEDS ORDERED: Ampicillin 2 GM in Sodium Chloride 0.9% 100 ML IV ONE (01:54)
[2020-05-24] MEDS ORDERED: Oxytocin/0.9 % Sodium Chloride 30 UNIT/500 ML BAG IV SCH (02:00)
[2020-05-24] MEDS ORDERED: Terbutaline 1 MG/ML SDV ONE (03:13)
[2020-05-24] MEDS ORDERED: Sodium Chloride 0.9% 50 ML ONE (04:37)
[2020-05-24] MEDS ORDERED: Ampicillin 1 GM Vial ONE (04:37)
--- NOTE | 2020-05-24 08:32 | HP ---
DATE OF : 1995 PRIMARY CARE PHYSICIAN: None PCP CHIEF COMPLAINT: labor. HISTORY: This is a 25-year-old female. She is G7, P5-0-1-5. She presents with complaint of contractions. She has a history of . She has had essentially no care in the 3rd trimester. She was recently seen in [place], [place], where she was diagnosed with COVID. She presented with a history of a cough. At that time, they noted her history of labor with no care and did provide her with betamethasone steroid injections and performed an ultrasound as well as OB lab work which we have obtained currently, and at that visit to the [facility], she was also found to be positive for methamphetamines. This has been complicated by lack of care. She states that she has had the majority of her care in [place], and then at multiple other [facility] outpatient emergency type visits. She reports good movement. She does have contractions, which manifests as low back pain. She has had no loss of fluid. She has good movement. She states that she has not used methamphetamines since late April. She has previously undergone treatment but has relapsed during this . PAST MEDICAL HISTORY: Significant for methamphetamine use. PAST SURGICAL HISTORY: None. SOCIAL HISTORY: She is single, sexually active. She does not have custody of her other children due to substance abuse. She was treated for gonorrhea in 2019 with a negative test of cure. She is not sure if she has had gonorrhea or chlamydia testing during this . ALLERGIES: Oxycodone which causes itching. CURRENT MEDICATIONS: vitamins and iron. PHYSICAL EXAMINATION: VITAL SIGNS: Temperature is 97.1, blood pressure is 133/83, pulse is 93. heart tones are 150s, moderate variability, accelerations present, no decelerations. GENERAL: She is alert and oriented. She is in no acute distress. NECK: Supple without lymphadenopathy or thyromegaly. LUNGS: Clear bilaterally. CARDIOVASCULAR: Regular rate without murmur. ABDOMEN: Soft, gravid, nontender. EXTREMITIES: Trace edema. VAGINAL: Very posterior, 5 to 6 cm, soft. Lindsey is occasional, irregular contraction with some irritability. ASSESSMENT AND PLAN: 1. 35 and 0/7 weeks intrauterine based on the patient's report with ultrasound in [place] showing estimated gestational age of which would currently be 33 weeks and 5 days. Estimated weight at that time was 2261 g, 5 pounds 0 ounces, EZEKIEL was 14. She is multiparous. Her cervix is stretchy. She is not having regular contractions. We will proceed with admission and group B Strep prophylaxis. Records have been obtained including labs from [place]. We will continue observation for cervical change. If the cervix progresses forward to more anterior position or she progresses beyond 6 cm, we will proceed with providing her with an epidural. In the meantime, she can use IV pain medication. 2. COVID positive. She is under appropriate COVID precautions with respiratory precautions and she is currently asymptomatic. 3. History of gonorrhea. We will check gonorrhea and chlamydia lab by urine. 4. Substance abuse including methamphetamine. Specialty Department Supervisor will be notified and proceed with Social Service consult during this admission. The patient understands all of this information and agrees with the plan of care. CARO ABRAHAM /[id number]
[2020-05-24] MEDS: Ampicillin 1 GM in Sodium Chloride 0.9% 50 ML IV SCH ×2 (10:38→15:18)
[2020-05-25 11:01] LABS: C.TRACHOMATIS BY TMA Negative (Negative); N.GONORRHOEAE BY TMA Negative (Negative)
== END 2020-05-24 14:35 ==
LOC: MW.OB 23:39 → MW.OBCHECK 23:39 → MW.OB 05-24 01:54 → MW.OBCHECK 05-24 01:54
PROVIDERS: ADMIT Obstetrics & Gynecology; ATTEND Obstetrics & Gynecology
DX: O60.03 Preterm labor without delivery, third trimester (principal); U07.1 COVID-19; Z88.5 Allergy status to narcotic agent; Z68.35 Body mass index [BMI] 35.0-35.9, adult; F15.10 Other stimulant abuse, uncomplicated
CPT/HCPCS: 36415; 80305-QW; 85027; 86592; 86850; 86900; 86901; 86920; 86921; 86922; 87491; 87591; 87653; J0290; J7120

== ENCOUNTER 2020-05-29 15:55 | Emergency (ER) | payer SELFPAY ==
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
== END 2020-05-29 17:19 ==
LOC: MW.ED 15:55
DX: Z02.89 Encounter for other administrative examinations (principal); Z88.5 Allergy status to narcotic agent; Z79.899 Other long term (current) drug therapy
CPT/HCPCS: 99282; 99283

== ENCOUNTER 2020-06-08 15:06 | Emergency (ER) | payer SELFPAY ==
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
[2020-06-08 16:33] LABS: BLOOD UREA NITROGEN,BUN 13 mg/dL (7.0-18.0); CHLORIDE,CL 106 mmol/L (98-107); GLUCOSE RANDOM 91 mg/dL (74-106); LIPASE 146 U/L (73-393); SODIUM,NA 139 mmol/L (136-145)
--- NOTE | 2020-06-08 18:14 | US ---
INDICATION: Recent vaginal delivery. Increased bleeding and clot formation. TECHNIQUE: Transvaginal ultrasound of the pelvis. COMPARISON: None. FINDINGS: Uterus: 7.7 x 6.4 x 8.2 cm. Normal echotexture of the myometrium. No masses. Endometrium: Endometrial thickness measures 38 mm. Large amount of heterogeneous echogenic material in the endometrium. No significant flow on color Doppler images. Right ovary measures 3.5 x 1.9 x 1.7 cm and left ovary measures 3.0 x 2.6 x 1.6 cm. No ovarian or adnexal masses. Normal arterial and venous blood flow is demonstrated in both ovaries. Cul-de-sac: No significant free fluid. IMPRESSION: Markedly thickened endometrium containing heterogeneous echogenic material likely representing blood products. Retained products of conception cannot be excluded although there is no significant flow on color Doppler images. Dictated by Gurvinder Laurent MD @ Jun 08 2020 6:04PM Signed by Dr. Gurvinder Laurent @ Jun 08 2020 6:14PM
== END 2020-06-08 18:45 | disposition home or self-care (01) ==
LOC: MW.ED 15:06
DX: O72.2 Delayed and secondary postpartum hemorrhage (principal); O90.89 Other complications of the puerperium, not elsewhere classified; M79.651 Pain in right thigh; Z86.16 Personal history of COVID-19; Z88.5 Allergy status to narcotic agent
CPT/HCPCS: 36415; 76830; 76830-26; 80053; 83690; 83735; 85025; 85610; 85730; 99284-25

== ENCOUNTER 2021-06-20 01:16 | Emergency (ER) | payer SELFPAY ==
[2021-06-20] MEDS ORDERED: Lidocaine 1% 5 ML VIAL INJECT ONE (01:27)
[2021-06-20] MEDS ORDERED: Bupivacaine 0.25% 10 ML SDV INJECT ONE (01:27)
== END 2021-06-20 01:53 | disposition home or self-care (01) ==
LOC: MW.ED 01:16
DX: K08.89 Other specified disorders of teeth and supporting structures (principal); K00.7 Teething syndrome; Z88.5 Allergy status to narcotic agent
CPT/HCPCS: 64400; 99282; J3490; 99281

== ENCOUNTER 2021-11-21 13:05 | Emergency (ER) | payer BC | END 2021-11-21 14:21 | disposition home or self-care (01) | LOC: MW.ED 13:05 | DX: L01.00 Impetigo, unspecified (principal); M94.0 Chondrocostal junction syndrome [Tietze]; Z88.5 Allergy status to narcotic agent | CPT/HCPCS: 99283 ==

== ENCOUNTER 2022-05-21 20:03 | Emergency (ER) | payer BC | END 2022-05-21 20:10 | LOC: MW.ED 20:03 | DX: Z53.21 Procedure and treatment not carried out due to patient leaving prior to being seen by health care provider (principal) ==

== ENCOUNTER 2022-07-18 19:26 | Emergency (ER) | payer BC, MEDICAID ==
[2022-07-18] MEDS ORDERED: Lidocaine 1% 5 ML VIAL INJECT STA ×2 (20:23→23:34)
[2022-07-18] MEDS ORDERED: traMADol 50 MG Tab PO STA (20:23)
[2022-07-18] MEDS ORDERED: Amoxicillin/Clavulanate K 875-125 MG Tab PO STA (23:34)
[2022-07-18] MEDS ORDERED: Acetaminophen/oxyCODONE 325-5 MG Tab PO STA (23:43)
[2022-07-18 23:49] LABS: APPEARANCE,URINE CLEAR; BILIRUBIN,URINE NEGATIVE (NEGATIVE); COLOR,URINE YELLOW; GLUCOSE,URINE NEGATIVE (NEGATIVE); KETONES,URINE NEGATIVE (NEGATIVE); LEUKOCYTE ESTERASE,URINE NEGATIVE (NEGATIVE); NITRITE,URINE NEGATIVE (NEGATIVE); OCCULT BLOOD,URINE SMALL (NEGATIVE); PH,URINE 5.5 (5.0-8.0); PROTEIN,URINE NEGATIVE (NEGATIVE); UROBILINOGEN,URINE 0.2 EU/dL (<2.0)
[2022-07-19 00:15] LABS: BACTERIA,URINE RARE (NEGATIVE); EPITHELIAL CELLS,URINE RARE (NONE-FEW); RBC,URINE 0-1 (0-2/HPF); WBC,URINE 0-1 (0-5/HPF)
[2022-07-19 01:19] LABS: C. TRACHOMATIS BY PCR NOT DETECTED; N. GONORRHOEAE BY PCR NOT DETECTED
== END 2022-07-19 00:34 | disposition home or self-care (01) ==
LOC: MW.ED 19:26
DX: S02.32XA Fracture of orbital floor, left side, initial encounter for closed fracture (principal); S01.01XA Laceration without foreign body of scalp, initial encounter; S01.81XA Laceration without foreign body of other part of head, initial encounter; S05.12XA Contusion of eyeball and orbital tissues, left eye, initial encounter; T79.7XXA Traumatic subcutaneous emphysema, initial encounter; Z86.16 Personal history of COVID-19; Z88.5 Allergy status to narcotic agent; Z79.899 Other long term (current) drug therapy; Y04.0XXA Assault by unarmed brawl or fight, initial encounter
CPT/HCPCS: 12013; 70450; 70486; 73130; 81001; 87491; 87591; 99284; A9270; J3490

== ENCOUNTER 2022-07-21 14:31 | Emergency (ER) | payer MEDICAID ==
[2022-07-21] MEDS ORDERED: Tetracaine HCl/PF 0.5% 4 ML Bottle EYELF ONE (17:06)
[2022-07-21] MEDS ORDERED: Fluorescein 1 MG Ophth Strip EYELF ONE (17:07)
== END 2022-07-21 19:36 | disposition home or self-care (01) ==
LOC: MW.ED 14:31
DX: S05.02XA Injury of conjunctiva and corneal abrasion without foreign body, left eye, initial encounter (principal); Z88.5 Allergy status to narcotic agent; Y04.0XXA Assault by unarmed brawl or fight, initial encounter
CPT/HCPCS: 70450; 70450-26; 70486; 70486-26; 99283; J3490

== ENCOUNTER 2022-08-13 13:22 | Emergency (ER) | payer MEDICAID ==
[2022-08-13] MEDS ORDERED: Amoxicillin/Clavulanate K 875-125 MG Tab PO ONE (13:43)
[2022-08-13] MEDS ORDERED: Ketorolac 60 MG/2 ML SDV IM ONE (13:43)
[2022-08-13] MEDS ORDERED: Ketorolac 30 MG/ML SDV IVPUSH ONE (14:03)
[2022-08-13 14:11] LABS: BASOPHILS PERCENT AUTO 0.3 % (0.0-1.5); EOSINOPHILS ABSOLUTE AUTO 0.1 K/uL (0.0-0.7); EOSINOPHILS PERCENT AUTO 1.4 % (0.0-7.0); HEMATOCRIT 35.6 % (36.0-46.0); HEMOGLOBIN 11.5 g/dL (12.0-16.0); LYMPHOCYTES ABSOLUTE AUTO 1.8 K/uL (0.6-2.4); LYMPHOCYTES PERCENT AUTO 20.2 % (16.0-40.0); MEAN CORPUSCULAR HEMOGLOBIN 27.8 pg (27.0-32.0); MEAN CORPUSCULAR HGB CONC 32.3 g/dL (31.0-37.0); MEAN CORPUSCULAR VOLUME 86.2 fL (80.0-98.0); MONOCYTES ABSOLUTE AUTO 0.8 K/uL (0.0-0.8); NEUTROPHILS PERCENT AUTO 69.1 % (48.0-80.0); PLATELET COUNT,PLT 382 K/uL (150-400); RED BLOOD CELL COUNT 4.13 M/uL (4.30-5.90); WHITE BLOOD CELL COUNT,WBC 8.65 K/uL (4.0-11.0)
[2022-08-13 14:16] LABS: CALCIUM 8.9 mg/dL (8.5-10.1); CARBON DIOXIDE,CO2 26.8 mmol/L (21.0-32.0); CREATININE 0.6 mg/dL (0.6-1.0); EST CRCL DRUG DOSING (CG) 110.4 mL/min; POTASSIUM,K 4.1 mmol/L (3.5-5.1)
[2022-08-13] MEDS ORDERED: Sodium Chloride 0.9% 1,000 ML IV ONE (14:16)
[2022-08-13] MEDS ORDERED: Iopamidol 755 MG/ML 500 ML Multipack Bottle IVPUSH STA (15:33)
== END 2022-08-13 16:53 | disposition home or self-care (01) ==
LOC: MW.ED 13:22
DX: G89.18 Other acute postprocedural pain (principal); Z91.199 Patient's noncompliance with other medical treatment and regimen due to unspecified reason; Z88.5 Allergy status to narcotic agent
CPT/HCPCS: 36415; 70487; 80048; 85025; 96361; 96374; 99284; A9270; J1885; J7030; Q9967

== ENCOUNTER 2023-06-26 14:04 | Inpatient (IN) | payer SELFPAY ==
[2023-06-26] MEDS ORDERED: Methylergonovine 0.2 MG/1 ML Amp IM PRN (17:55)
[2023-06-26] MEDS ORDERED: Aluminum Hydroxide/Magnesium Hydroxide/Simethicone XS Susp 30 ML Cup PO PRN (17:55)
[2023-06-26] MEDS ORDERED: Lidocaine 1% 50 ML MDV INJECT PRN (17:55)
[2023-06-26] MEDS ORDERED: Water For Irrigation,Sterile 1,000 ML Container IRR PRN (17:55)
[2023-06-26] MEDS ORDERED: Misoprostol 200 MCG Tab PO PRN (17:55)
[2023-06-26] MEDS ORDERED: Carboprost Tromethamine 250 MCG/1 mL Vial IM PRN (17:55)
[2023-06-26] MEDS ORDERED: Acetaminophen 325 MG Tab PO PRN (17:55)
[2023-06-26] MEDS ORDERED: Sodium Chloride 0.9% 10 ML Syringe FLUSH PRN ×2 (17:55→23:00)
[2023-06-26] MEDS ORDERED: Ondansetron 4 MG/2 ML SDV IVPUSH PRN (17:55)
[2023-06-26] MEDS ORDERED: Sodium Chloride 0.9% 2.5 ML Syringe FLUSH PRN ×2 (17:55→23:00)
[2023-06-26] MEDS ORDERED: Sodium Chloride 0.9% 20 ML SDV IV PRN (17:55)
[2023-06-26] MEDS ORDERED: Tranexamic Acid IN NACL,ISO-OS 1,000 MG in Premix Bag 1 BAG IV PRN (17:55)
[2023-06-26] MEDS: Lactated Ringers 1,000 ML IV SCH (19:00)
[2023-06-26 19:04] LABS: HEMATOCRIT 31.3 % (37.0-47.0); HEMOGLOBIN 10.2 g/dL (12.0-16.0); MEAN CORPUSCULAR HEMOGLOBIN 26.4 pg (28.0-32.0); MEAN CORPUSCULAR HGB CONC 32.6 g/dL (32.0-36.0); MEAN CORPUSCULAR VOLUME 81.1 fL (83.0-99.0); MEAN PLATELET VOLUME 11.3 fL (9.4-12.3); PLATELET COUNT,PLT 285 K/uL (150-400); RED BLOOD CELL COUNT 3.86 M/uL (4.10-5.30); WHITE BLOOD CELL COUNT,WBC 14.77 K/uL (3.9-11.3)
[2023-06-26] MEDS: Ropivacaine HCl/PF 400 MG in Premix Bag 1 BAG EPIDUR SCH (19:10)
[2023-06-26] MEDS ORDERED: dexmedeTOMIDine HCl 200 MCG/2 ML SDV ONE (19:23)
[2023-06-26] MEDS ORDERED: Ropivacaine HCl/PF 200 ML ONE (19:23)
[2023-06-26] MEDS ORDERED: Phenylephrine HCl 0.5 MG/5 ML AMP ONE (19:23)
[2023-06-26] MEDS ORDERED: ePHEDrine 50 MG/ML SDV IVPUSH PRN ×2 (19:29)
[2023-06-26] MEDS: Phenylephrine HCl In 0.9% NaCl 1 MG/10 ML Syringe IVPUSH PRN (19:30)
[2023-06-26] MEDS: Oxytocin/0.9 % Sodium Chloride 30 UNIT/500 ML BAG IV SCH (22:42)
[2023-06-26] MEDS: Misoprostol 100 MCG Tab RECTAL ONE (22:50)
[2023-06-26] MEDS ORDERED: Bisacodyl 10 MG Supp RECTAL PRN (23:00)
[2023-06-26] MEDS ORDERED: Docusate Sodium 100 MG Cap PO PRN (23:00)
[2023-06-26] MEDS ORDERED: Benzocaine/Menthol 20%-0.5% Spray 78 GM Cannister TOP PRN (23:00)
[2023-06-26] MEDS ORDERED: Simethicone 80 MG Tab.Chew PO PRN (23:00)
[2023-06-26] MEDS ORDERED: Witch Hazel Medicated Pads 40/Jar TOP PRN (23:00)
[2023-06-26] MEDS ORDERED: Famotidine 20 MG Tab PO PRN (23:00)
[2023-06-26] MEDS ORDERED: Lanolin 100% Cream 7 GM Tube TOP PRN (23:00)
[2023-06-26] MEDS ORDERED: Sennosides 8.6 MG Tab PO PRN (23:00)
[2023-06-26] MEDS ORDERED: diphenhydrAMINE 50 MG Cap PO PRN (23:00)
[2023-06-26] MEDS: Sertraline 25 MG Tab PO SCH (23:45)
[2023-06-27 00:13] LABS: AMPHETAMINES SCREEN, URINE NEGATIVE (CUTOFF=500); BARBITURATE SCREEN,URINE NEGATIVE (CUTOFF=200); BENZODIAZEPINES SCREEN,URINE NEGATIVE (CUTOFF=150); BUPRENORPHINE SCREEN,URINE NEGATIVE (CUTOFF=10); METHADONE SCREEN, URINE NEGATIVE (CUTOFF=200); METHAMPHETAMINES SCREEN, URINE NEGATIVE (CUTOFF=500); OXYCODONE SCREEN,URINE NEGATIVE (CUT0FF=100); PCP SCREEN,URINE NEGATIVE (CUTOFF=25); THC SCREEN,URINE 20 NG/ML NEGATIVE (CUTOFF=50)
[2023-06-27] MEDS: Acetaminophen 500 MG Tab PO PRN (01:22)
[2023-06-27] MEDS: Ibuprofen 800 MG Tab PO PRN (01:23)
[2023-06-27] MEDS: Iron Polysaccharides Complex 150 MG Cap PO SCH (08:08)
== END 2023-06-27 19:40 | disposition home or self-care (01) | DRG 806 ==
LOC: MW.OBCHECK 14:04 → MW.OB 14:05 → MW.OBCHECK 17:55 → MW.OB 17:56 → OBSVTOIN 22:42 → MW.OB 06-27 01:10
PROVIDERS: ADMIT Obstetrics & Gynecology; ATTEND Obstetrics & Gynecology
PROC: 10E0XZZ Delivery of Products of Conception, External Approach (ICD-10-PCS; principal; 2023-06-26)
PROC: 10907ZC Drainage of Amniotic Fluid, Therapeutic from Products of Conception, Via Natural or Artificial Opening (ICD-10-PCS; 2023-06-26)
PROC: 3E0R3BZ Introduction of Anesthetic Agent into Spinal Canal, Percutaneous Approach (ICD-10-PCS; 2023-06-26)
PROC: 00HU33Z Insertion of Infusion Device into Spinal Canal, Percutaneous Approach (ICD-10-PCS; 2023-06-26)
DX: O42.02 Full-term premature rupture of membranes, onset of labor within 24 hours of rupture (principal); O99.324 Drug use complicating childbirth; Z37.0 Single live birth; O99.344 Other mental disorders complicating childbirth; F32.A Depression, unspecified; F41.9 Anxiety disorder, unspecified; O76 Abnormality in fetal heart rate and rhythm complicating labor and delivery; F11.10 Opioid abuse, uncomplicated; Z3A.38 38 weeks gestation of pregnancy; Z86.16 Personal history of COVID-19
CPT/HCPCS: 36415; 51702; 59025; 59409; 80305-QW; 84112; 85027; 86592; 86850; 86900; 86901; A9270-GY; J2371; J2590; J2795; J3490; J7120